=== PATIENT | female | born 1955 | race Asian ===

== ENCOUNTER 2018-10-05 09:14 | Day surgery (SDC) | payer OTHER ==
[~2018-10-05 09:14] MED LIST: Buffered Lidocaine 1% SYRIN* 1 ML/SYRINGE INTRADERM ONE; Dexamethasone IV* 4 MG/ML 1 ML (4 MG) IV SLOW PU ONE; Dexamethasone IV* 4 MG/ML 1 ML (4 MG) ONE; Famotidine IV* 10 MG/ML 2 ML (20 mg) IV ONE; Famotidine IV* 10 MG/ML 2 ML (20 mg) ONE; Lactated Ringers 1000 ML Bag* 1,000 ML IV SCH
[2018-10-05] MEDS ORDERED: Midazolam* 1 MG/ML 5 ML VIAL (5 MG) ONE (11:31)
[2018-10-05] MEDS ORDERED: Propofol* 10 MG/ML 20 ML BTL ONE (11:31)
[2018-10-05] MEDS ORDERED: Bupivacaine 0.25% SDV* 30 ML ONE (11:31)
[2018-10-05] MEDS ORDERED: fentaNYL* 50 MCG/ML 2 ML VIAL (100 MCG VIAL) ONE (11:31)
[2018-10-05] MEDS ORDERED: Lidocaine 2% PF * 5 ML VIAL ONE (11:31)
[2018-10-05 13:13] VITALS: BP 148/90
--- NOTE | 2018-10-05 16:12 | OP ---
OPERATIVE REPORT: DATE OF OPERATION: 10/05/18 - [facility] DATE OF : 55 SURGEON: Jose Coleman MD. MATERIALS COORDINATOR: KIMBERLY Hampton. ANESTHESIOLOGIST: Dr. Sorenson. ANESTHESIA: Local MAC. PRE-OP DIAGNOSIS: Right thumb very distal enlarged mucous cyst. POST-OP DIAGNOSIS: Right thumb very distal enlarged mucous cyst. OPERATIVE PROCEDURE: 1. Excision of right thumb mucous cyst. 2. Closure of right dorsal thumb wound with local rotational flap. ESTIMATED BLOOD LOSS: 2 mL. COMPLICATIONS: None. FINDINGS: See above and below. DESCRIPTION OF PROCEDURE: Al was seen in the preoperative holding area. The correct site, side, and procedure were identified. We came back to the operating room where the arm was prepped and draped in the usual fashion. A time-out was performed. The arm was exsanguinated with the Esmarch and the tourniquet was inflated to 225 mmHg. The mucous distally really had no overlying skin. There is just maybe a cell layer covering the cyst. I went ahead and just ellipsed out mucous cyst, which was sitting right up in the eponychium on the dorsal radial aspect. I went ahead and excised the margins of the cyst all the way down to the deep portion of cyst. The cyst was then tracked back to the radial aspect of the IP joint of the thumb. The entire cyst was emptied there and handed off as a specimen. I then cauterized the interval between the terminal extensor tendon and the radial collateral ligament. Once this done, everything was looking good. I looked at my wound. I decided the best way to close this was a rotational flap. I raised a C- shaped incision over the dorsum of the thumb. Full-thickness flap of the skin and subcutaneous tissue was raised up off of the paratenon of the extensor tendon. Once I had mobilized this, I was able to rotate it down to cover the wound distally. The skin edges were trimmed. These had all lined up very nicely. Once I had rotated the flap down, I went ahead and closed the entirety of the wound with multiple 4-0 simple interrupted sutures. The tourniquet was let down and the flap pinked up immediately. Everything was looking very nice. We had irrigated the wound out prior to closure. The wound was dressed with Xeroform, 4 x 4s, sterile Webril and then a Coban dressing was applied. She was taken to the recovery room in stable condition. [id number]/[facility] #: [id number] ROBYN
== END 2018-10-05 13:05 | disposition home or self-care (01) ==
LOC: OREAST 09:14
PROVIDERS: ATTEND Orthopaedic Surgery Hand Surgery
DX: M67.441 Ganglion, right hand (principal); I10 Essential (primary) hypertension; J45.909 Unspecified asthma, uncomplicated
CPT/HCPCS: 88304; J1100; J2250; J2704; J3010; J3490

== ENCOUNTER 2019-08-14 06:24 | Day surgery (SDC) | payer OTHER ==
[~2019-08-14 06:24] MED LIST changes: +Acetaminophen TAB* 325 MG PO PRN; -Dexamethasone IV* 4 MG/ML 1 ML (4 MG) IV SLOW PU ONE; -Dexamethasone IV* 4 MG/ML 1 ML (4 MG) ONE; -Famotidine IV* 10 MG/ML 2 ML (20 mg) IV ONE; -Famotidine IV* 10 MG/ML 2 ML (20 mg) ONE; -Lactated Ringers 1000 ML Bag* 1,000 ML IV SCH
[2019-08-14] MEDS ORDERED: Midazolam* 1 MG/ML 5 ML VIAL (5 MG) ONE (07:28)
[2019-08-14] MEDS ORDERED: fentaNYL* 50 MCG/ML 2 ML VIAL (100 MCG VIAL) ONE (07:40)
[2019-08-14 08:22] VITALS: BP 136/85
[2019-08-14] MEDS ORDERED: Ketorolac 0.5% OPHTH (NF) 0.5 % 5 ML BTL ONE (10:08)
[2019-08-14] MEDS ORDERED: Tetracaine 0.5% OPTH.SOL 4 ML* 1 DROP BTL ONE (10:08)
[2019-08-14] MEDS ORDERED: Tropicamide 1% OPTH.SOL* BTL ONE (10:08)
[2019-08-14] MEDS ORDERED: Cyclopentolate 1% OPTH.SOL* 2 ML BTL ONE (10:08)
[2019-08-14] MEDS ORDERED: Neomycin/Polymy/Dex OPHTH.OIN* 3.5 GM ONE (10:08)
[2019-08-14] MEDS ORDERED: Lidocaine 1% MPF ** 5 ML VIAL ONE (10:08)
[2019-08-14] MEDS ORDERED: Phenylephrine OPHTH SOL 2.5%* 2 ML ONE (10:08)
--- NOTE | 2019-08-14 10:38 | OP ---
DATE OF OPERATION: 08/14/19 [facility] DATE OF : 55 SURGEON: Kenny Henry MD. POWDERMAN: None. ANESTHESIA: Topical with intravenous sedation. PRE-OP DIAGNOSIS: Cataract with astigmatism, right eye. POST-OP DIAGNOSIS: Cataract with astigmatism, right eye. OPERATIVE PROCEDURE: Phacoemulsification and cataract extraction with posterior chamber toric multifocal intraocular lens implant, right eye. COMPLICATIONS: None. BLOOD LOSS: None. DESCRIPTION OF PROCEDURE: The patient was brought to the operating room and received intravenous sedation. A drop of tetracaine was placed into her right eye. The patient was prepped and draped in the usual sterile fashion for ophthalmic surgery and attention was directed to the right eye where a speculum was placed. A paracentesis was created at the 11 o'clock position. 0.1 cc of 1% preservative- free lidocaine was injected into the anterior chamber followed by DisCoVisc. The eye was digitally stabilized while a 2.75-mm keratome was used to create a triplanar clear corneal incision at the 9 o'clock position. A continuous curvilinear capsulorrhexis was created using a cystotome and Utrata forceps. BSS on a cannula was used to hydrodissect the lens from the capsule. Phacoemulsification was performed in a [id number] technique to create 4 fragments, which were removed. Residual cortical material was removed with irrigation and aspiration. Provisc was used to inflate the capsular bag. The intraocular pressure was measured and the surface of the eye was lubricated. The ORA device was employed to help choose the intraocular lens. A TFNT30 18- diopter lens was chosen. The reticle on the ORA helped guide the lens' axial alignment to 76 degrees. The lens was folded and inserted into the capsular bag and rotated to the appropriate axial alignment with a Sinskey hook. The lens was stabilized in this position with a Sinskey hook for the paracentesis while irrigation and aspiration were performed to remove viscoelastic from the eye. BSS on a cannula was used to hydrate the corneal stroma and seal the wound at the end of the case. The pupil was round and intraocular pressure appeared normal. The intraocular lens was stable, centered, and axially aligned. Topical Maxitrol ointment was placed on the surface of the eye. The eye was closed, patched, and shielded, and the patient was sent to recovery room in stable condition with postop instructions and followup appointment given. [id number]/[facility] #: [id number] ROBYN
[2019-08-14] MEDS ORDERED: Phenylephr/Ketorolac 1%/0.3% OPH DROP BTL ONE (14:04)
== END 2019-08-14 08:30 | disposition home or self-care (01) ==
LOC: OREAST 06:24
PROVIDERS: ATTEND Ophthalmology
DX: H25.11 Age-related nuclear cataract, right eye (principal); H52.201 Unspecified astigmatism, right eye; I10 Essential (primary) hypertension; J45.909 Unspecified asthma, uncomplicated; K21.9 Gastro-esophageal reflux disease without esophagitis
CPT/HCPCS: A9270-GY; J1097; J2250; J3010; V2788